=== PATIENT | female | born 1995 | race Two or more races ===

== ENCOUNTER → 2018-06-24 | Emergency (ER) | payer OTHER ==
[~2018-06-24] VITALS: Ht 177.8 cm; Wt 118.4 kg
[~2018-06-24] MED LIST: PRENATABS FA T1 EACH
== END | disposition home or self-care (01) ==
LOC: ER 20:24
DX: O26.892 Other specified pregnancy related conditions, second trimester (principal); R55 Syncope and collapse; Z34.02 Encounter for supervision of normal first pregnancy, second trimester
CPT/HCPCS: 70551